=== PATIENT | male | born 1965 | race Caucasian/White ===

== ENCOUNTER 2019-06-28 23:22 | Emergency (ER) | payer SELFPAY ==
[~2019-06-28] VITALS: Ht 203.2 cm; Wt 154.5 kg
[2019-06-29 01:00] LABS: BASO # 0.1 (0.0-0.2); BASO % 0.6 % (0.0-2.0); EOS # 0.2 (0.0-0.7); EOS % 2.9 % (0-4.0); GRAN # 5.2 (1.4-6.5); GRAN % 63.2 % (42.2-75.2); HEMATOCRIT 45.1 % (42.0-52.0); HEMOGLOBIN 15.3 g/dl (13.5-18.0); LYMPH % 24.2 % (20.0-51.0); MEAN CELL VOLUME 89 fl (80.0-100.0); MEAN CORPUSCULAR HEMOGLOBIN 30 pg (27.0-31.0); MEAN CORPUSCULAR HGB CONC 34 g/dl (33.0-37.0); MEAN PLATELET VOLUME 13.1 fl (7.4-10.4); MONO # 0.7 (0.1-0.6); MONO % 8.6 % (1.7-9.3); PLATELET COUNT 156 K/mm3 (130-400); RED BLOOD COUNT 5.08 M/mm3 (4.20-5.60); REDCELL DISTRIBUTION WIDTH-CV 12.1 % (11.5-14.5)
[2019-06-29 01:12] LABS: ALBUMIN 3.6 gm/dL (3.5-5.0); BILIRUBIN,TOTAL 0.8 mg/dL (0.0-1.0); CALCIUM 8.6 mg/dL (8.4-10.2); CREATININE, serum 0.83 (0.66-1.25); POTASSIUM 3.9 mmol/L (3.4-5.0)
[2019-06-29] MEDS ORDERED: CLEOCIN HC150 MG/CAP PO (02:48)
[2019-06-29] MEDS ORDERED: PERCOCET 325 MG1 TA2 PO (02:49)
[2019-06-29 03:30] VITALS: BP 197/123; PULSE 93; TEMP 98.6
== END 2019-06-29 03:40 | disposition home or self-care (01) ==
LOC: COL.ER 23:22
PROVIDERS: Physician Assistant
DX: L03.311 Cellulitis of abdominal wall (principal); E11.65 Type 2 diabetes mellitus with hyperglycemia; I10 Essential (primary) hypertension; Z88.1 Allergy status to other antibiotic agents; Z86.14 Personal history of Methicillin resistant Staphylococcus aureus infection
CPT/HCPCS: J1885; J2020; J7030; Q9967

== ENCOUNTER 2019-06-29 13:51 | Outpatient (CLI) | payer SELFPAY ==
[~2019-06-29] VITALS: Ht 190.5 cm; Wt 168.7 kg
[~2019-06-29 13:51] MED LIST: CLEOCIN HC150 MG/CAP PO; PERCOCET 325 MG1 TA2 PO
[2019-06-29 15:52] VITALS: BP 169/96; PULSE 97; TEMP 98.1
== END 2019-06-29 16:21 | disposition home or self-care (01) ==
LOC: EUO 13:51
DX: E11.9 Type 2 diabetes mellitus without complications (principal); I10 Essential (primary) hypertension; L03.319 Cellulitis of trunk, unspecified; Z86.14 Personal history of Methicillin resistant Staphylococcus aureus infection
CPT/HCPCS: J2020

== ENCOUNTER 2023-03-19 18:34 | Inpatient (IN) | payer MEDICAID ==
[~2023-03-19] VITALS: Ht 203.2 cm; Wt 182.7 kg
[2023-03-19] VITALS (8 sets, daily range): BP systolic 83–104; BP diastolic 48–61; PULSE 95; TEMP 98.7
--- NOTE | 2023-03-19 11:30 | NUR ---
SYSTOLIC BP'S STILL IN THE 80'S. 1L NS BOLIS ADMINISTERED. WILL CONTINUE TO MONITOR.
[2023-03-19] MEDS ORDERED: GLUCOTROL 5M5 MG/TAB PO (20:08)
[2023-03-19] MEDS ORDERED: VICTOZA6 MG/ML SQ (20:08)
[2023-03-19] MEDS ORDERED: K-DUR20 MEQ PO (20:08)
[2023-03-19] MEDS ORDERED: GLUCOPHAGE XR500 M1 PO (20:08)
[2023-03-19] MEDS ORDERED: FARXIGA10 PO (20:09)
[2023-03-19] MEDS ORDERED: LIPITOR 10MG10 MG PO (20:09)
[2023-03-19] MEDS ORDERED: LASIX 40MG TABL40 MG PO (20:09)
[2023-03-19] MEDS ORDERED: ELIQUIS 5MG PO (20:09)
[2023-03-19] MEDS ORDERED: NORVASC 10MG10 MG PO (20:09)
[2023-03-19] MEDS ORDERED: PRINIVIL20 MG PO (20:10)
[2023-03-19 20:41] LABS: HEMATOCRIT 41.9 % (42.0-52.0); HEMOGLOBIN 12.9 g/dl (13.5-18.0); MEAN CELL VOLUME 87 fl (80.0-100.0); MEAN CORPUSCULAR HEMOGLOBIN 27 pg (27-31); MEAN CORPUSCULAR HGB CONC 31 g/dl (33.0-37.0); MEAN PLATELET VOLUME 11.2 fl (7.4-10.4); RED BLOOD COUNT 4.81 M/mm3 (4.20-5.60); REDCELL DISTRIBUTION WIDTH-CV 14.1 % (11.5-14.5)
[2023-03-19 20:56] LABS: BAND 13 % (0-10); LYMPHOCYTE 2 % (20.0-51.0); NEUTROPHILS 84 % (42.0-75.2)
[2023-03-19 20:57] LABS: ANISOCYTOSIS 1+; HYPOCHROMIA 2+; PLATELET ESTIMATE NORMAL (NORMAL)
[2023-03-19 20:58] LABS: ALBUMIN 2.6 gm/dL (3.5-5.0); BILIRUBIN,TOTAL 0.8 mg/dL (0.2-1.2); C-REACTIVE PROTEIN 30.2 mg/dL (0.00-0.50); CALCIUM 9.1 mg/dL (8.4-10.2); CREATININE, serum 2.38 mg/dL (0.72-1.25); POTASSIUM 4.3 mmol/L (3.5-4.5); TOTAL PROTEIN 7.8 gm/dL (6.2-8.1)
[2023-03-19 20:58] LABS: PLATELET COUNT 228 K/mm3 (130-400)
--- NOTE | 2023-03-19 22:30 | NUR ---
PATIENT ARRIVED TO FLOOR AT 2230. BP 84/56, 1L BOLIS ADMINISTERED. PATIENT UNABLE TO TRANSFER TO NEW BED AND NOT RESPONDING TO [facility]. CONTACTED HOSPITALIST. O2 ADJUSTED TO 5L NC. PATIENT SWEATING BUT SAYS HE DOES NOT FEEL WARM. TEMP. 98.7 AND GLUCOSE 260. INSULIN GIVEN ORDERED. PATIENT STATES HE JUST FEELS TIRED AND HAS NO OTHER COMPLAINTS.
[2023-03-19 23:02] LABS: ARTERIAL BLD GAS O2 SATURATION 94.6 % (92-100); ARTERIAL BLD GAS TCO2 CT 24.6; ARTERIAL BLOOD GAS BASE EXCESS -2.2 (-2-2); ARTERIAL BLOOD GAS HCO3 23.3 meq/L (22-26); ARTERIAL BLOOD GAS PCO2 42.8 mmHg (35-45); ARTERIAL BLOOD GAS PO2 76.1 mmHg (80-100); ARTERIAL BLOOD GAS pH 7.35 (7.35-7.45)
[2023-03-19] MEDS ORDERED: NEPHRON FA TAB1 EACH PO (23:51)
[2023-03-19] MEDS ORDERED: VITAMIN C500 MG PO (23:53)
[2023-03-19] MEDS ORDERED: VITAMIN D250 MCG PO (23:54)
[2023-03-19] MEDS ORDERED: VITAMIN B12 781 TAB PO (23:55)
[2023-03-20] VITALS (989 sets, daily range): BP systolic 87–123; BP diastolic 53–78; PULSE 85–90; TEMP 97.9–100; O2SAT 74–99
--- NOTE | 2023-03-20 01:00 | NUR ---
PATIENTS BP'S STILL IN THE 80'S SYSTOLIC. ADVISED HOSPITALIST 1L CHUCHO BURTON ORDERED AND PATIENT TO MOVE DOWN TO ICU. UNDERSTOOD. CALLED REPORT TO REESE AND TRANSFERED PATIENT.
[2023-03-20 03:25] LABS: HEMATOCRIT 37.4 % (42.0-52.0); HEMOGLOBIN 11.6 g/dl (13.5-18.0); MEAN CELL VOLUME 89 fl (80.0-100.0); MEAN CORPUSCULAR HEMOGLOBIN 28 pg (27-31); MEAN CORPUSCULAR HGB CONC 31 g/dl (33.0-37.0); MEAN PLATELET VOLUME 11.9 fl (7.4-10.4); PLATELET COUNT 229 K/mm3 (130-400); REDCELL DISTRIBUTION WIDTH-CV 14.4 % (11.5-14.5)
[2023-03-20 03:32] LABS: INR 1.9 (0.8-3.0); PROTHROMBIN TIME 20.9 SECONDS (9.7-12.8)
[2023-03-20 03:48] LABS: ALBUMIN 2.3 gm/dL (3.5-5.0); BILIRUBIN,TOTAL 0.8 mg/dL (0.2-1.2); CALCIUM 8.7 mg/dL (8.4-10.2); CREATININE, serum 2.42 mg/dL (0.72-1.25); POTASSIUM 4.7 mmol/L (3.5-4.5); TOTAL PROTEIN 7.2 gm/dL (6.2-8.1)
[2023-03-20 03:55] LABS: TROPONIN-I 6 HR POST INITIAL 0.055 ng/mL (0.00-0.033)
[2023-03-20 04:01] LABS: BAND 13 % (0-10); LYMPHOCYTE 4 % (20.0-51.0); NEUTROPHILS 76 % (42.0-75.2); PLATELET ESTIMATE NORMAL (NORMAL)
--- NOTE | 2023-03-20 06:58 | NUR ---
JOSSY SIZED DIABETIC ULCER TO SOLE OF LEFT FOOT. TUNNELING NOTED WITH LARGE BLOOD-TINGED AND PURULENT DRAINAGE. INTACT BLISTERED AREAS NOTED TO TOP OF LEFT FOOT. NECROTIC AREAS NOTED TO LATERAL SIDE OF LEFT FOOT. RIGHT FOOT IS MISSING ALL PHALANGES OF RIGHT FOOT. BILATERAL LOWER LEGS SCALY AND DRY WITH SEEMINGLY POOR CIRCULATION
--- NOTE | 2023-03-20 07:02 | NUR ---
0130 - RECIEVED REPORT FROM ABIDA, NURSE ON SURGICAL FLOOR. 0200 - PT ARRIVED TO FLOOR IN STABLE CONDITION. ASSESSED PT WITH HOSPITALIST KAROLINE. 0645 - THIS RN CHECKING OVER PT'S CHART, NOTICED THAT ADMISSION WAS NOT COMPLETED BY SURGICAL NURSE ABIDA WAS TOLD IN REPORT. CALLED FLOOR TO LET NURSE KNOW. NURSE STATES SHE WILL COMPLETE ADMISSION DATA.
--- NOTE | 2023-03-20 11:30 | NUR ---
Central line placed this a.m. by Dr. Altamirano with this nurse assisting. Time out was done at approx 1106. Patient tolerated procedure well and x-ray was taken to verify placement.
--- NOTE | 2023-03-20 13:09 | NUR ---
SW met with patient to complete intake. Patient provides that he lives in [facility] with his parents. Mom is Kiera Mckenzie [phone]. Patient provides that he utilizes a walker, crutches as well as a wheelchair, is independent with getting around home and does not utilize HH services at this time. PCP is Dr. Tomas and pharmacy is [facility]. Patient states that he does not have anyone appointment as DPOA, patient states that his plan is to return to his home upon dc. SW will continue to follow. DC plan: home
--- NOTE | 2023-03-20 21:47 | NUR ---
RECEIVED REPORT FROM SWEETIE ROMERO RN. PATIENT RESTING IN BED WITH EYES CLOSED AT THIS TIME. CALL LIGHT WITHIN REACH. ORDERS, LABS, AND MEDICATIONS REVIEWED AND ACKNOWLEDGED.
--- NOTE | 2023-03-20 22:03 | NUR ---
HEAD TO TOE ASSESSEMNT COMPLETED. PATIENT IS DROWSY BUT ABLE TO BE AROUSED AND ORIENTATED X4. PUPILS ARE EQUAL AND REACTIVE. HEART SOUNDS REGULAR WITH S1 AND S2 NOTED. LUNG SOUNDS ARE CLEAR BILATERALLY IN UPPER AND LOWER LOBES, WITH DIMINISHED BASES. BOWEL SOUNDS ACTIVE IN ALL QUADRANTS. PATIENT'S PULSES ARE PRESENT AND ABLE TO BE FELT BILATERALLY IN UPPER EXTREMITIES. PULSES TO LOWER EXTREMITIES ARE AUDIBLE VIA DOPPLER. PATIENT HAS VALDEZ IN PLACE DRAINING CLEAR YELLOW URINE. PATIENT HAS NO COMPLAINTS OF PAIN AT THIS TIME. CALL LIGHT IS WITHIN REACH.
[2023-03-21] VITALS (480 sets, daily range): BP systolic 91–111; BP diastolic 53–69; PULSE 81–85; TEMP 96.3–99.7; O2SAT 89–98
[2023-03-21 05:26] LABS: BASO % 0.3 % (0.0-2.0); EOS # 0.1 K/mm3 (0.0-0.7); EOS % 0.9 % (0.0-4.0); GRAN # 12.3 K/mm3 (1.4-6.5); GRAN % 79.7 % (42.2-75.2); LYMPH # 1.5 K/mm3 (1.2-3.4); LYMPH % 9.4 % (20.0-51.0); MEAN CELL VOLUME 89 fl (80.0-100.0); MEAN CORPUSCULAR HEMOGLOBIN 27 pg (27-31); MEAN CORPUSCULAR HGB CONC 31 g/dl (33.0-37.0); MONO # 1.4 K/mm3 (0.1-0.6); MONO % 9.2 % (1.7-9.3); PLATELET COUNT 189 K/mm3 (130-400); RED BLOOD COUNT 4.02 M/mm3 (4.20-5.60); REDCELL DISTRIBUTION WIDTH-CV 14.5 % (11.5-14.5)
[2023-03-21 05:36] LABS: HEMATOCRIT 35.7 % (42.0-52.0)
[2023-03-21 05:41] LABS: BILIRUBIN,TOTAL 0.5 mg/dL (0.2-1.2); CALCIUM 8.6 mg/dL (8.4-10.2); CREATININE, serum 1.88 mg/dL (0.72-1.25); TOTAL PROTEIN 6.7 gm/dL (6.2-8.1)
--- NOTE | 2023-03-21 06:47 | NUR ---
PATIENT SLEPT FOR MAJORITY OF THE NIGHT. PATIENT DID WAKE AND REQUEST APPLESAUCE WHICH WAS PROVIDED. PATIENT HAD NO COMPLAINTS OF PAIN THROUGHOUT NIGHT. OVERALL, NIGHT WAS UNEVENTFUL. PATIENT CURRENTLY RESTING IN BED WITH EYES CLOSED. CALL LIGHT WITHIN REACH.
[2023-03-21] MEDS ORDERED: CADUET 10 MG-101 TAB PO (09:27)
--- NOTE | 2023-03-21 09:40 | NUR ---
0700 BEDSIDE REPORT RECEIVED FROM BOB MAYNARD. PT RESTING IN BED. HEPARIN AND FLUIDS INFUSING ORDERED TO CENTRAL LINE IN RIJ. DRESSING TO LINE REINFORCED. VALDEZ CATHETER IN PLACE TO DEPENDENT DRAINAGE. WOUND TO L FOOT HUMAN RESOURCES ASSISTANT, LARGE AMOUNT OF BLOODY PURULENT DRAINAGE NOTED. PT DENIES PAIN. 0845 PT TRANSFERED TO SURGICAL FLOOR VIA BED BY ROSHNI. ALL PT BELONGINGS BAGGED AND TAKEN W/ PT.
--- NOTE | 2023-03-21 11:30 | NUR ---
Pt. arrived to the floor at 0900 from the ICU. Pt. is A&OX3, assessment complete. TLC to rt. IJ. patent. Wound to lt. bottom of foot noted, SHIP MATE, with some drainage noted. Pt. denies pain or other needs, call light within reach.
--- NOTE | 2023-03-21 19:12 | NUR ---
REPORT RECIEVED FROM ROBERT ROJAS. PT RESTING IN BED. NO C/O PAIN OR DISCOMFORT. CALL LIGHT IN PLACE. ALL NEEDS MET AT THIS TIME.
--- NOTE | 2023-03-21 21:26 | NUR ---
SHIFT ASSESSMENT COMPLETE, SEE DOCUMENTATION. PT RESTING IN BED. STRUGGLED WITH REPOSITIONING BUT DENIED PAIN. IVF RUNNING TO BROWN LUMEN, HEPARIN CONTINUES TO BLUE LUMEN. NO OTHER CONCERNS. CALL LIGHT IN PLACE. ALL NEEDS MET AT THIS TIME.
[2023-03-22] VITALS (612 sets, daily range): BP systolic 108–124; BP diastolic 56–71; PULSE 72–87; TEMP 97.8–99.1; O2SAT 88–97
--- NOTE | 2023-03-22 04:50 | NUR ---
ICU CALLED TO INFORM ME PT IS HAVING INCREASED FREQUENCY OF PVC NOTED ON TELE. CALLED AZALIA RAMEY TO UPDATE. AWAITING PHONE CALL BACK.
--- NOTE | 2023-03-22 05:05 | NUR ---
AZALIA RAMEY CALLED BACK AND PUT IN AN ORDER FOR AN EKG. RT OH IS PERFORMING EKG NOW.
--- NOTE | 2023-03-22 05:35 | NUR ---
EKG COMPLETE. AZALIA RAMEY PUT IN ORDERS FOR STAT LABS, ECHO, & CARDIAC CONSULT. PT REMAINS ASYMPTOMATIC AND DENIES CHEST PAIN OR SOB. CALL LIGHT IN PLACE. ALL NEEDS MET AT THIS TIME.
[2023-03-22 05:58] LABS: BASO # 0.1 K/mm3 (0.0-0.2); BASO % 0.4 % (0.0-2.0); EOS # 0.2 K/mm3 (0.0-0.7); EOS % 1.1 % (0.0-4.0); GRAN # 10.3 K/mm3 (1.4-6.5); GRAN % 74.5 % (42.2-75.2); HEMOGLOBIN 10.8 g/dl (13.5-18.0); LYMPH % 14.2 % (20.0-51.0); MEAN CELL VOLUME 86 fl (80.0-100.0); MEAN CORPUSCULAR HEMOGLOBIN 27 pg (27-31); MEAN CORPUSCULAR HGB CONC 31 g/dl (33.0-37.0); MEAN PLATELET VOLUME 11.7 fl (7.4-10.4); MONO # 1.3 K/mm3 (0.1-0.6); PLATELET COUNT 203 K/mm3 (130-400); RED BLOOD COUNT 4.03 M/mm3 (4.20-5.60); REDCELL DISTRIBUTION WIDTH-CV 14.1 % (11.5-14.5)
[2023-03-22 06:02] LABS: HEMATOCRIT 34.7 % (42.0-52.0)
[2023-03-22 06:19] LABS: MAGNESIUM 2.3 mg/dL (1.6-2.6); PHOSPHOROUS 3.1 mg/dL (2.3-4.7)
--- NOTE | 2023-03-22 06:20 | NUR ---
PT TRANSFERRED TO [facility].
--- NOTE | 2023-03-22 06:23 | NUR ---
PATIENT DID NOT WANT TO WEAR CPAP LAST NIGHT, HE IS WILLING TO TRY TONIGHT.
[2023-03-22 06:35] LABS: TROPONIN-I 0.011 ng/mL (0.00-0.033); TSH w REFLEX 1.335 uIU/mL (0.350-4.940)
[2023-03-22 06:57] LABS: ALBUMIN 1.9 gm/dL (3.5-5.0); BILIRUBIN,TOTAL 0.5 mg/dL (0.2-1.2); CALCIUM 8.7 mg/dL (8.4-10.2); CREATININE, serum 1.36 mg/dL (0.72-1.25); POTASSIUM 4.1 mmol/L (3.5-4.5); TOTAL PROTEIN 6.6 gm/dL (6.2-8.1)
--- NOTE | 2023-03-22 07:13 | NUR ---
Pt arrived on the unit at 0607. Nurse Eboni gave bedside report at 0609. Heparin drip was stopped at 0500 for the KA that is scheduled for 1100. Pt's vitals were stable upon arrival with pt on room air and has NS running at 125 ml/hr. Pt is alert and oriented x4. Pt's HR is sinus rhythm with some small 3-5 runs of VTACH, pulses are present. Amio bolus was given and drip started for the runs of VTACH. Pt denies CP, SOB, dizziness, and headache. Assessed that pt's right eye is red, irritated, and discharge/mucus. Pt's pupils look like different sizes per charted assessment, tried to notify both night and day shift hospitalist, passed onto to day shift nurse, Francy, in report. Gave report to day shift nurseFrancy.
--- NOTE | 2023-03-22 07:43 | NUR ---
Called Eboni john in surgerical floor, the nurse that had him before he came down here, to ask if they noticed the pt had different pupil sizes and asked BOB Grey who had him last night in the ICU to see if his pupils were different sizes. They both said they were the same size. The pupils are both reactive to light.
--- NOTE | 2023-03-22 07:47 | NUR ---
Home med. rec., allergies, and pharmacy were passed on to day shift nurseFrancy.
--- NOTE | 2023-03-22 12:01 | NUR ---
1042 OR TEAM LEFT WITH PT FOR BKA.
--- NOTE | 2023-03-22 12:30 | NUR ---
SW attempted to visit with pt after rounds, but he is in surgery. Will return later.
--- NOTE | 2023-03-22 15:08 | NUR ---
1500 PT BACK TO ICU ROOM 5. PT ALERT AND ORIENTED RATING PAIN 6/10 BUT HAD JUST RECIEVED MEDICATION PRIOR TO LEAVING PACU. REVIEWED PUMPS AND SURGICAL SITE WITH MICHEL PACU NURSE. PT RESTING AT THIS TIME. 1510 MOM AT BEDSIDE IN WHEELCHAIR
--- NOTE | 2023-03-22 18:52 | NUR ---
PT HAVING HARD TIME WITH PAIN MANAGEMENT. THIS NURSE HAS REPOSITIONED PT AND PT LEG SEVERAL TIMES PT STATED IT FEELS LIKE A TON OF BRIKCS ARE ON MY LEG. PRN PAIN MEDICATION ADMINISTERED TO THE MAX AMOUNT ORDERED. 1520 PO 5MG OXYCODONE 1535 IV 0.25MG DILAUDID 1620 ADDITIONAL 5MG OXYCODONE ADMINISTERED PER ORDER. 1700 PT STATES PAIN CONTINUES TO BE 10/10 WITH NO RELIEF. [address] MATHIS. ORDERS TO GIVE 0.5MG DILAUDID NOW IF NOT EFFCTIVE CALL IN HOUSE PROVIDER. 1730 ADDITIONAL DILAUDID NOT EFFECTIVE. CALL TO DR. CANALES FOR FURTHER ORDERS. NEW ORDERS TO INCREASE DILAUDID TO 0.5-1MG q2HR AND OXYCODONE TO 10MG Q4HRS. IF THIS IS NOT EFFECTIVE CONSULT [facility] HOSPITALIST FOR CVOR NURSE PUMP. PT REPOSISTIONED AND ICE PACK UNDER KNEE. PT STATES HE CONTINUES TO HAVE 10/10 PAIN FOLLOWING LAST DOSE OF DILAUDID
--- NOTE | 2023-03-22 19:50 | NUR ---
Received report from day shift nurse, Francy. Looked at the wrap and hemovac on pt's left leg. The kina wrap is clean dry and intact. Pt is on amio 0.5 mg/min and on NS. Pain rated pain at the end of his left leg a 6/10 which is better then what it was during the day, describes the pain "rocks cruching my leg." Pt on 3 L NC. Vitals are stable at this time.
[2023-03-23] VITALS (493 sets, daily range): BP systolic 103–128; BP diastolic 63–77; PULSE 66–79; TEMP 96.6–98.4; O2SAT 84–100
[2023-03-23 05:18] LABS: CALCIUM 8.5 mg/dL (8.4-10.2); CREATININE, serum 1.04 mg/dL (0.72-1.25); POTASSIUM 4.1 mmol/L (3.5-4.5)
[2023-03-23 05:28] LABS: MEAN CELL VOLUME 88 fl (80.0-100.0); MEAN CORPUSCULAR HEMOGLOBIN 27 pg (27-31); MEAN CORPUSCULAR HGB CONC 31 g/dl (33.0-37.0); MEAN PLATELET VOLUME 11.9 fl (7.4-10.4); PLATELET COUNT 208 K/mm3 (130-400); RED BLOOD COUNT 3.71 M/mm3 (4.20-5.60); REDCELL DISTRIBUTION WIDTH-CV 14.2 % (11.5-14.5)
[2023-03-23 05:35] LABS: HEMATOCRIT 32.6 % (42.0-52.0)
[2023-03-23 06:27] LABS: BAND 3 % (0-10); EOSINOPHIL 1 % (0-4); HYPOCHROMIA 2+; LYMPHOCYTE 15 % (20.0-51.0); METAMYELOCYTE 1 % (0-0); NEUTROPHILS 66 % (42.0-75.2); PLATELET ESTIMATE NORMAL (NORMAL)
--- NOTE | 2023-03-23 06:48 | NUR ---
Pt had an uneventfulnight. Pt's pain level has been between 4-6 throuhgout the night. Pt's RR was a 10 from beginning of the shift to around 0300. Pt's RR is now a 14. Hospitalist was notified at the beginning of the shift. Pt was repositioned q2hrs for the first 6 hours of the shift, but then pt refused to reposition after that. Nurse explained to pt that we need to reposition to prevent sores from appearing on the bottom or anywhere he is lying on for long periods of time, it can also help with pain relief as well. Pt still refuses to reposition. Pt's LBKA CLARE wrap dressing is clean, dry and intact. The hemovac drain output was 150 mL since pt came back from the surgery. Iced was placed on the CLARE wrap at this time. Pt has good pulses per doppler on the left popliteal. Pt on BiPAP at this time with 3 L of O2 connected. Pt's vitals have been stable throughout the night. Pt is resting with call light within reach. Will give report to day shift nurse.
--- NOTE | 2023-03-23 07:02 | NUR ---
Pt is on 5 L O2 with the BiPAP, not 3 L O2
--- NOTE | 2023-03-23 12:53 | NUR ---
PIOTR briefly met with pt after rounds this morning. Advised him that [facility] has him on their radar and once he is transferred upstairs, [facility] staff will evaluate him for rehab. Pt verbalized understanding and he indicated he is receptive to participating in a rehab prog before he goes home. PIOTR alerted [facility] staff to pt's potential transfer to the floor. No other concerns noted.
--- NOTE | 2023-03-23 13:25 | NUR ---
HEPARIN ON HOLD UNTIL DR. MATHIS GOT INTOUCH WITH DR. WEI TO OK TO START. 1150 JESSICA FROM PHARMACY CALLED THIS NURSE TO RELY MESSAGE TO GO AHEAD AND START HEPARIN AT 3000 U/HR NO BOLUS. HEPXA WAS DRAWN PRIOR IT INITIATING HOWEVER LAB CALLED AND STATED THE TUBE WAS TO FULL, HEPARIN PUT ON HOLD FOR 10 MINS AND LAB WAS REDRAWN. RESULTS 0.24. CALL TO JESSICA IN PHARMACY TO CONFIRM TO CONTINUE INITIATED RATE OF 300U/HR AND FOLLOW PROTOCAL AT 6 HOUR DRAW.
--- NOTE | 2023-03-23 13:29 | NUR ---
PT EDUCATED SEVERAL TIMES TO REPOSITION TO HELP MINIMIS PRESSURE SORES HOWEVER PT CONTINUES TO DENY. PT STATES "IM ONLY COMFORTABLE LAYING ON MY BACK" PT DID LET NURSE PROP BLE WITH PILLOWS AND REPOISTION BLE Q2HRS.
--- NOTE | 2023-03-23 14:17 | NUR ---
Received report on patient from BOB Sen. Patient resting in bed and wearing CPAP. No complaints at this time. Will continue to monitor.
--- NOTE | 2023-03-23 16:30 | NUR ---
Assisted with a bed bath and linen change. Tolerated well. No concerns or complaints at this time.
[2023-03-24] VITALS (611 sets, daily range): BP systolic 117–144; BP diastolic 59–77; PULSE 73–86; TEMP 97.9–98.8; O2SAT 74–100
--- NOTE | 2023-03-24 07:00 | NUR ---
Bedside report received from BOB Holt. Pt had uneventful night; slept for most of the night. Reports no issues this AM. Dr. Mcclain at the bedside at this time; pulled hemovac drain due to minimal output. Pt tolerated well and reports no pain.
[2023-03-24 07:33] LABS: MEAN CELL VOLUME 87 fl (80.0-100.0); MEAN CORPUSCULAR HGB CONC 31 g/dl (33.0-37.0); MEAN PLATELET VOLUME 11.2 fl (7.4-10.4); PLATELET COUNT 226 K/mm3 (130-400); RED BLOOD COUNT 3.42 M/mm3 (4.20-5.60); REDCELL DISTRIBUTION WIDTH-CV 14.2 % (11.5-14.5)
[2023-03-24 07:35] LABS: HEMATOCRIT 29.8 % (42.0-52.0); HEMOGLOBIN 9.2 g/dl (13.5-18.0); MEAN CORPUSCULAR HEMOGLOBIN 27 pg (27-31)
[2023-03-24 07:56] LABS: BAND 6 % (0-10); EOSINOPHIL 1 % (0-4); LYMPHOCYTE 21 % (20.0-51.0); METAMYELOCYTE 1 % (0-0); NEUTROPHILS 65 % (42.0-75.2); PLATELET ESTIMATE NORMAL (NORMAL)
--- NOTE | 2023-03-24 14:40 | NUR ---
Pt transfered to room 329. Report given to BOB Thurman. All patient belonings moved with pt to new room. Pt orientedt to room and BOB Thurman present in room upon pt's arrival. Pt offers no complaints.
--- NOTE | 2023-03-24 14:58 | NUR ---
Patient arrived to the unit from ICU to room 329 via bariatric bed at 1430. Patient alert and oriented. Lungs CTA , bowel sounds active. Dressing on left stump dry and intact. 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 RLE dry and scaly. RIJ intact and no redness noted. VSS. Patient oriented to room and the use of call bolden. Patient's 02 level decrease when trying to take nap. Patient states he uses CPAP at night. 02L/NC applied on. Patient has no other issues or concern.
--- NOTE | 2023-03-24 18:44 | NUR ---
Patient in bed, consumed 100% of dinner, and denies pain at this time. left BKA dressing dry and intact.
--- NOTE | 2023-03-24 20:00 | NUR ---
PT A&O X4 LAYING IN BED. VSS. DENYING ANY PAIN OR N/V. ACEWRAP DRESSING TO LBKA CDI. BED LOWERED & CALL LIGHT IN REACH. PT DENYING FURTHER NEEDS AT THIS TIME.
--- NOTE | 2023-03-24 22:45 | NUR ---
PT UNABLE TO VOID SINCE VALDEZ D/C THIS AFTERNOON. BLADDER SCAN SHOWED 454 MLS. PT STATES "I WILL NOT HAVE ANOTHER CATHETER ITS TO PAINFUL & IT WILL COME OUT WHEN ITS READY". PROVIDED PT EDUCATION ON URINARY RETENTION. HOSPITALIST DEEPALI AWARE & WILL CONTINUE TO MONITOR & NOTIFY IF EXCEEDS 600MLS.
[2023-03-25] VITALS (12 sets, daily range): BP systolic 142–174; BP diastolic 68–69; PULSE 79–85; TEMP 97.7–98.4
--- NOTE | 2023-03-25 00:59 | NUR ---
PT ABLE TO VOID 100 MLS. BLADDER SCAN NOW SHOWS 298 MLS.
--- NOTE | 2023-03-25 04:26 | NUR ---
C/O PAIN 12/18 IN LEFT LEG - REPOSITIONED & GIVEN PRN OXY. PT HAS VOIDED 600 MLS - BLADDER SCAN NOW SHOWING 191 MLS.
--- NOTE | 2023-03-25 05:50 | NUR ---
IN TO CHANGE DRESSING
[2023-03-25 05:57] LABS: MEAN CELL VOLUME 87 fl (80.0-100.0); MEAN CORPUSCULAR HGB CONC 31 g/dl (33.0-37.0); MEAN PLATELET VOLUME 10.8 fl (7.4-10.4); PLATELET COUNT 284 K/mm3 (130-400); RED BLOOD COUNT 3.51 M/mm3 (4.20-5.60); REDCELL DISTRIBUTION WIDTH-CV 14.4 % (11.5-14.5)
[2023-03-25 05:59] LABS: HEMATOCRIT 30.6 % (42.0-52.0); HEMOGLOBIN 9.4 g/dl (13.5-18.0); MEAN CORPUSCULAR HEMOGLOBIN 27 pg (27-31)
--- NOTE | 2023-03-25 07:11 | NUR ---
Report received from the night nurse, BOB Dailey.
[2023-03-25 08:07] LABS: CALCIUM 8.5 mg/dL (8.4-10.2); CREATININE, serum 0.95 mg/dL (0.72-1.25); POTASSIUM 4.2 mmol/L (3.5-4.5)
--- NOTE | 2023-03-25 08:18 | NUR ---
Patient laying in bed, 02 2L/NC in use, patient denies of shortness of breath. Left BKA dressing dry and intact and ice pack in place. Patient reminded of NPO status for possible procedure. Patient verbalized understanding.
--- NOTE | 2023-03-25 08:44 | NUR ---
This nurse went to patient's room to have him sign consent for scheduled loop recorder implantation. Patient refused to sign consent for the procedure states " I don't want to have any device underneath my skin". Patient educated the importance of having loop recorder implantation but still declined to have procedure done. Dr. Schofield office called and spoke to Shanon Hodges RN of patient's decision. builder's labourer also notified of patient declining the loop recorder implantation.
--- NOTE | 2023-03-25 13:31 | NUR ---
Patient wanted to get updates whether he will be getting surgery today since it;s noon time. Adrian Do was notified and got updates on patient that patient is no longer having active bleeding at left BKA. Adrian gave a telephone order to resume patient's diet, starts Eliquis this pm and physical therapy tomorrow. Patient notified and has no other questions or concern.
--- NOTE | 2023-03-25 14:18 | NUR ---
Behavioral Interventionist and SW student met with Patient at bedside to discuss discharge planning. SW discussed the potential for Post Acute Rehab when Patient is medically cleared. Patient is open to [facility] who is following Patient's treament. SW spoke with Greta at [facility] who stated that they are moving forward with the referral process.
--- NOTE | 2023-03-25 16:34 | NUR ---
Dr. Jen Mcclain at the bedside and did a dressing change on left BKA, no active bleeding noted. Affected extremity elevated on a pillow. Patient tolerated the procedure well.
--- NOTE | 2023-03-25 18:03 | NUR ---
Patient states he had lunch and does not want to eat dinner.
--- NOTE | 2023-03-25 21:00 | NUR ---
SHIFT ASSESSMENT COMPLETE. VSS. A&O X4. ALL NIGHT MEDS GIVEN PER ORDER. PATIENT RESTING IN BED WATCHING TV. PATIENT STATES PAIN AT A 4 NO PAIN MEDS REQUESTED AT THIS TIME. PATIENT HAS NO COMPLAINTS OR REQUEST AT THIS TIME. BED AT LOWEST POSITION, BED ALARM ON, AND CALL LIGHT IN REACH.
[2023-03-26] VITALS (13 sets, daily range): BP systolic 133–181; BP diastolic 65–81; PULSE 71–85; TEMP 97.8–98.7
[2023-03-26 05:47] LABS: MEAN CELL VOLUME 88 fl (80.0-100.0); MEAN CORPUSCULAR HGB CONC 31 g/dl (33.0-37.0); MEAN PLATELET VOLUME 10.3 fl (7.4-10.4); PLATELET COUNT 316 K/mm3 (130-400); RED BLOOD COUNT 3.18 M/mm3 (4.20-5.60); REDCELL DISTRIBUTION WIDTH-CV 14.6 % (11.5-14.5)
[2023-03-26 05:53] LABS: HEMOGLOBIN 8.7 g/dl (13.5-18.0); MEAN CORPUSCULAR HEMOGLOBIN 27 pg (27-31)
[2023-03-26 06:17] LABS: BAND 7 % (0-10); EOSINOPHIL 1 % (0-4); HYPOCHROMIA 2+; LYMPHOCYTE 15 % (20.0-51.0); NEUTROPHILS 69 % (42.0-75.2); PLATELET ESTIMATE NORMAL (NORMAL)
[2023-03-26 06:25] LABS: C-REACTIVE PROTEIN 9.96 mg/dL (0.00-0.50)
[2023-03-26 06:39] LABS: CALCIUM 8.5 mg/dL (8.4-10.2); CREATININE, serum 0.77 mg/dL (0.72-1.25); POTASSIUM 4.4 mmol/L (3.5-4.5)
--- NOTE | 2023-03-26 08:40 | NUR ---
ASSISTED PT AND PATIENT WITH BEDBATH. NEW GOWN AND CLEAN UNDERWARE REPLACED. PT TOLERATED WELL. DRESSING TO [facility]. PT EATING AND DRINKING WITH NO N/V. LEFT LEG ELEVATED ON PILLOWS BY THERAPY.
--- NOTE | 2023-03-26 13:46 | NUR ---
Senior Energy Trader rounds: Patient talked about his surgeries and recovery periods from June 2022 until now. Patient talked about having support from his Parents. Patient talked about his Grandmother taking him to denominational when he was younger. Senior Energy Trader found a denominational that might interest Patient on youtube. Senior Energy Trader prayed for healing and good physical therapy sessions in the coming week.
--- NOTE | 2023-03-26 20:30 | NUR ---
Initial shift assessment done- denies need for pain meds at this time, states pain is 2/10 to left stump incision, o2 at 2L/nc, states he feels like hes not getting the air-- sats 93%, resp called and will put him on his CPAP for the night, did void 200cc urine per urinal, Tele on SR, Dressing dry and intact to left BKA, up on pillow. SCD to right leg-
[2023-03-27] VITALS (10 sets, daily range): BP systolic 134–159; BP diastolic 62–68; PULSE 71–81; TEMP 97.7–98.6
[2023-03-27 05:57] LABS: MEAN CELL VOLUME 88 fl (80.0-100.0); MEAN CORPUSCULAR HGB CONC 30 g/dl (33.0-37.0); MEAN PLATELET VOLUME 10.4 fl (7.4-10.4); PLATELET COUNT 318 K/mm3 (130-400); RED BLOOD COUNT 3.16 M/mm3 (4.20-5.60); REDCELL DISTRIBUTION WIDTH-CV 14.6 % (11.5-14.5)
[2023-03-27 06:04] LABS: HEMATOCRIT 27.9 % (42.0-52.0); HEMOGLOBIN 8.4 g/dl (13.5-18.0); MEAN CORPUSCULAR HEMOGLOBIN 27 pg (27-31)
--- NOTE | 2023-03-27 06:12 | NUR ---
Denies pain, Slept fair, L/BKA dressing dry and intact. Afebrile.
[2023-03-27 06:20] LABS: CALCIUM 8.7 mg/dL (8.4-10.2); CREATININE, serum 0.71 mg/dL (0.72-1.25); POTASSIUM 4.6 mmol/L (3.5-4.5)
[2023-03-27 06:48] LABS: BAND 9 % (0-10); EOSINOPHIL 4 % (0-4); LYMPHOCYTE 15 % (20.0-51.0); METAMYELOCYTE 1 % (0-0); NEUTROPHILS 67 % (42.0-75.2); PLATELET ESTIMATE NORMAL (NORMAL)
--- NOTE | 2023-03-27 09:13 | NUR ---
PT UP TO DANGLE, BED BATH COMPLETE. ATE 100% OF BREAKFAST. DRESSING TO LEFT BKA CDI PT DENIES NEEDS OR PAIN AT THIS TIME. CAREPLAN REVIEWED WITH PT AND WILL CONTINUE TO FOLLOW. PT READY FOR PLACEMENT.
[2023-03-28 03:38] VITALS: BP 138/61; PULSE 63; TEMP 97.7
[2023-03-28 08:00] VITALS: BP 144/71; PULSE 76; TEMP 98.8
--- NOTE | 2023-03-28 09:48 | NUR ---
Sandblaster Supervisor collaborated with Treatment Team during rounding to assess Patient for discharge readiness. Patient is assessed to be ready for discharge to post-acute rehab. SW spoke with [facility] who reports to be pending auth at this time.
--- NOTE | 2023-03-28 10:01 | NUR ---
PT LAYING IN BED, ALERT AND ORIENTEDX4. PT TOLERATED BREAKFAST AND HAS NO COMPLAINTS OF PAIN AT THIS TIME. DRESSING ON LEFT LEF IS CLEAN, DRY, INTACT. IJ FLUSHES AND DRAWS BACK IN ALL THREE SITES. BELT DRESSER WENT IN WITH ME AND GAVE THE PT MORNING MEDS WITH SUPERVISION FROM THIS NURSE. CALL LIGHT WITHIN REACH.
[2023-03-28 10:07] VITALS: BP 144/71; PULSE 76; TEMP 98.8
[2023-03-28 10:24] VITALS: BP_SYST 144
[2023-03-28 12:31] VITALS: BP_SYST 144
[2023-03-28] MEDS ORDERED: CEPHALEXIN500 M1 PO (13:30)
[2023-03-28] MEDS ORDERED: ASPI325T6 PO (13:35)
[2023-03-28] MEDS ORDERED: NEURONTIN300 MG/CAP PO (13:36)
[2023-03-28] MEDS ORDERED: TYLENOL 500MG500 MG PO (13:36)
[2023-03-28] MEDS ORDERED: PACERONE400 MG PO (13:41)
[2023-03-28] MEDS ORDERED: LIPITOR 10MG10 MG PO (13:57)
--- NOTE | 2023-03-28 16:08 | NUR ---
PT HAS DISCHARGE ORDERS TO GO TO [facility]. TOOK OUT CENTRAL LINE. GAVE REPORT TO [facility] NURSE, EDD. TRANSFERED PT FROM ROOM 329 TO ROOM 334.
[2023-03-28] MEDS ORDERED: PROTONIX 40MG T40 MG PO (16:41)
== END 2023-03-28 16:00 | DRG 853 ==
LOC: COL.ER 18:34 → SURG 19:53 → ICU 19:53 → SURG 03-21 09:00 → ICU 03-22 06:25 → SURG 03-24 14:45
PROVIDERS: Emergency Medicine; Nurse Practitioner Family; Orthopaedic Surgery; Physician Assistant; ADMIT Internal Medicine
PROC: 02HV33Z Insertion of Infusion Device into Superior Vena Cava, Percutaneous Approach (ICD-10-PCS; 2023-03-20)
PROC: 0Y6J0Z1 Detachment at Left Lower Leg, High, Open Approach (ICD-10-PCS; principal; 2023-03-22 11:00)
DX: A40.1 Sepsis due to streptococcus, group B (principal); J96.01 Acute respiratory failure with hypoxia; R65.21 Severe sepsis with septic shock; N17.9 Acute kidney failure, unspecified; Z68.41 Body mass index [BMI] 40.0-44.9, adult; I47.20 Ventricular tachycardia, unspecified; I13.0 Hypertensive heart and chronic kidney disease with heart failure and stage 1 through stage 4 chronic kidney disease, or unspecified chronic kidney disease; E66.2 Morbid (severe) obesity with alveolar hypoventilation; E11.52 Type 2 diabetes mellitus with diabetic peripheral angiopathy with gangrene; I96 Gangrene, not elsewhere classified; L03.116 Cellulitis of left lower limb; E11.621 Type 2 diabetes mellitus with foot ulcer; L97.529 Non-pressure chronic ulcer of other part of left foot with unspecified severity; I77.819 Aortic ectasia, unspecified site; E11.610 Type 2 diabetes mellitus with diabetic neuropathic arthropathy; E11.22 Type 2 diabetes mellitus with diabetic chronic kidney disease; N18.30 Chronic kidney disease, stage 3 unspecified; D64.9 Anemia, unspecified; E88.09 Other disorders of plasma-protein metabolism, not elsewhere classified; E78.5 Hyperlipidemia, unspecified; Z20.822 Contact with and (suspected) exposure to COVID-19; Z79.01 Long term (current) use of anticoagulants; Z79.84 Long term (current) use of oral hypoglycemic drugs; Z91.199 Patient's noncompliance with other medical treatment and regimen due to unspecified reason; Z89.431 Acquired absence of right foot; Z86.718 Personal history of other venous thrombosis and embolism; Z86.73 Personal history of transient ischemic attack (TIA), and cerebral infarction without residual deficits; Z88.1 Allergy status to other antibiotic agents
CPT/HCPCS: A4314; C9113; J0282; J0696; J1170; J1644; J1815; J2020; J2270; J2405; J2543; J2704; J2795; J3010; J7030; J7060; J7120; Q3014

== ENCOUNTER 2023-03-28 14:30 | Inpatient (IN) | payer MEDICAID ==
[~2023-03-28] VITALS: Ht 203.2 cm; Wt 170.0 kg
[~2023-03-28 14:30] MED LIST changes: +ASPI325T6 PO; +CADUET 10 MG-101 TAB PO; +CEPHALEXIN500 M1 PO; +ELIQUIS 5MG PO; +FARXIGA10 PO; +GLUCOPHAGE XR500 M1 PO; +GLUCOTROL 5M5 MG/TAB PO; +K-DUR20 MEQ PO; +LASIX 40MG TABL40 MG PO; +LIPITOR 10MG10 MG PO; +NEPHRON FA TAB1 EACH PO; +NEURONTIN300 MG/CAP PO; +NORVASC 10MG10 MG PO; +PACERONE400 MG PO; +PRINIVIL20 MG PO; +TYLENOL 500MG500 MG PO; +VICTOZA6 MG/ML SQ; +VITAMIN B12 781 TAB PO; +VITAMIN C500 MG PO; +VITAMIN D250 MCG PO
--- NOTE | 2023-03-28 16:00 | NUR ---
PT ALERT AND ORIENTED X4. VITAL SIGNS STABLE. LEFT BKA WRAPPED IN CLARE BANDDAGE, CLEAN, DRY, INTACT. TURNS WELL IN BED. HEAD TO TOE ASSESSMENT COMPLETE. PT REFUSED ALL CARDIAC WORKUP PREVIOUS TO ADDMISSION TO [facility]. WEARS CPAP AT BEDTIME, WHICH IS IN THE ROOM. NO VALUABLES WITH PT. PATIENT BELONGINGS INCLUDE PRESCRIPTION GLASSES AND CELLULAR PHONE. SCD TO RIGHT LOWER EXTREMITY.
[2023-03-28] MEDS ORDERED: PROTONIX 40MG T40 MG PO (16:41)
[2023-03-28 18:33] VITALS: BP 155/63; PULSE 81; TEMP 97.8
[2023-03-28 21:07] VITALS: BP_SYST 155
--- NOTE | 2023-03-28 22:27 | NUR ---
PT. DENIES ANY PAIN RIGHT NOW, STATES HE IS READY TO HAVE HIS CPAP PUT ON SO THAT HE CAN GET SOME SLEEP, I LET HIM KNOW THAT I WOULD CALL RT SOON I WAS DONE GIVING HIM HIS NIGHT TIME MEDS, SO THAT THEY CAN GET HIM SET UP, WILL CONTINUE TO MONITOR.
[2023-03-29 00:29] VITALS: BP_SYST 155
[2023-03-29 05:51] VITALS: BP 148/65; PULSE 73; TEMP 98.3
[2023-03-29 06:59] VITALS: BP_SYST 148
--- NOTE | 2023-03-29 06:59 | NUR ---
Shift report received from mold shifter RN. Pt sleeping supine in bed w/ even & unlabored resps. No events reported overnight. Call light in reach. Bed alarm is on.
--- NOTE | 2023-03-29 09:01 | NUR ---
Pt sitting up at sink to shave. RIJ dressing removed. Site is w/o bleeding & is intact.
--- NOTE | 2023-03-29 10:54 | NUR ---
Has lack of transportation kept you from medical appts, meetings, work, or from getting things needed for daily living? NO How often do you feel lonely or isolated from those around you? NEVER Over the past 5 days, how much of the time has pain made it hard for you to sleep? OCCASIONALLY Over the past 5 days, how often have you limited your participation in therapy due to pain? RARELY/NOT AT ALL Over the past 5 days, how often have you limited your day-to-day activities because of pain? RARELY/NOT AT ALL Have you had 2 or more falls in the past year or any fall with an injury? NO Did you have major surgery during the 100 days prior to admission? YES
--- NOTE | 2023-03-29 11:19 | NUR ---
Pt sitting up in the wheelchair watching tv in his room. Lt. BKA stump elevated on footrest. Rt. pedal pulse audible w/ doppler. Pt denies pain/discomfort. Reports "some tingling" in LLE & it is "tolerable". Pt denies other needs. Call light in reach.
--- NOTE | 2023-03-29 13:08 | NUR ---
Pt is off the unit w/ PT.
--- NOTE | 2023-03-29 16:56 | NUR ---
Min asst provided to position pt on bedpan per his request. Pt had a large, formed BM. Excoriated skin to left inner buttock (in cleft). Skin noted to be peeling w/ pink wound bed. Skin rip-wound is not red or tender. Skin barrier ointment applied to this area.
[2023-03-29 18:02] VITALS: BP 147/49; PULSE 71; TEMP 98.2
--- NOTE | 2023-03-29 19:00 | NUR ---
RECEIVED CHANGE OF SHIFT REPORT FROM DAY SHIFT RN. PATIENT RESTING IN BED, EYES CLOSED, BREATHING NONLABORED AND EVEN. AWAKEN WHEN STAFF ENTERED ROOM ON ROUNDS. CALL LIGHT IN REACH, PATIENT ON BARIBED. DENIES ANY NEEDS AT TIME OF REPORT.
[2023-03-30 05:15] VITALS: BP 127/63; PULSE 72; TEMP 97.5
--- NOTE | 2023-03-30 06:50 | NUR ---
CHANGE OF SHIFT REPORT GIVEN TO DAY SHIFT RNs, JEYSON AND EDD. PATIENT SLEPT DURING THE NIGHT WITH CPAP ON WITH OXYGEN BLEED IN OF 2.5 LPM. CALL LIGHT IN REACH. DENIED ANY COMPLAINTS OF PAIN THROUGH THE NIGHT.
[2023-03-30 07:00] VITALS: BP_SYST 127
--- NOTE | 2023-03-30 09:07 | NUR ---
PT RESTING IN BED COMFORTABLE. ALERT AND ORIENTED. USING BARIATRIC BED. PT REQUESTED THE BEDPAN, TURNS WITH MINIMAL ASSISTANCE. VITAL SIGNS STABLE. NO C/O PAIN AT THIS TIME. INSULIN NOT REQUIRED. TAKES PILLS WHOLE W/O PROBLEMS. HEAD TO TOE ASSESSMENT COMPLETE. LEFT STUMP WRAPPED IN CLARE BANDAGE, CLEAN DRY, INTACT. CALL LIGHT WITHIN REACH.
--- NOTE | 2023-03-30 13:00 | NUR ---
Pt is off the unit for PT.
--- NOTE | 2023-03-30 14:54 | NUR ---
Color Stripper met with patient to welcome him to the rehab unit and to provide copy of team conference notes. SW advised no discharge date is set at this time and he will be re-evaluated next week. Patient lives in [place] with his parents and he has his mom, Kiera (ph#[phone]) listed as his point of contact. Patient sees Dr. Mccarthy at [facility] for primary care and obtains medications from [facility] pharmacy. Patient does state that he gets his diabetic sensor supplies at [facility]. Patient has a heavy duty front wheeled walker, crutches, and a wheelchair available at home. Patient denies any stairs but does state there is a small threshold into the home. Patient does not have DPOA-HC at this time but may want to complete one during his stay. Patient is not and has no adult children. Patient's parents would be his legal next of kin.
--- NOTE | 2023-03-30 17:15 | NUR ---
PT BG REPORTED BY PCT TO BE 77. GAVE GLUCERNA TO PT. ASYMPTOMATIC AT THIS TIME DINNER SERVED WITHIN 15-20 MINUTES, PT ATE 100% OF DINNER.
[2023-03-30 17:41] VITALS: BP 136/73; PULSE 76; TEMP 98.1
--- NOTE | 2023-03-30 19:30 | NUR ---
RECEIVED CHANGE OF SHIFT REPORT FROM DAY SHIFT RN. UP IN WC DURING REPORT, VISITOR IN ROOM, NO NEEDS REPORTED, EXIT ALARM ON WITH CALL LIGHT IN REACH.
--- NOTE | 2023-03-31 | NUR ---
WITH PATIENT UP IN WC AT BEGINNING OF SHIFT, WAS FATIGUED AND TRANSFER FROM WC TO STOOL W/SOME DIFFICULTY THAT CONTINUES FROM STOOL TO WC AND THEN FROM WC TO BED. UNABLE TO USE SLIDE BOARD FROM WC TO BED DUE TO FATIGUE AND STILL HAD DIFFICULTY TOLERATING SIT TO STAND DUE TO FATIGUE. PATIENT DENIED COMPLAINTS OF PAIN WHEN BACK IN BED, DENIED CONCERNS FOR MOST OF THE SHIFT.
[2023-03-31 05:06] VITALS: BP 119/63; PULSE 72; TEMP 97.5
[2023-03-31 06:30] VITALS: BP_SYST 119
--- NOTE | 2023-03-31 07:12 | NUR ---
CHANGE OF SHIFT REPORT GIVEN TO DAY SHIFT RNNAKIA.
--- NOTE | 2023-03-31 08:57 | NUR ---
PT LAYING IN BED, ALERT AND ORIENTEDX4. NO COMPLAINTS OF PAIN AT THIS. TIME. DRESSING ON LEFT LEG IS CLEAN, DRY, INTACT. GAVE MORNING MEDS. CALL LIGHT WITHIN REACH.
[2023-03-31 17:41] VITALS: BP 128/63; PULSE 76; TEMP 98.2
--- NOTE | 2023-03-31 19:46 | NUR ---
Patient assessed at this time, see shift assessment, A/Ox4, wears CPAP with oxygen at 5LPM, denies pain or discomfort at this time, takes HS pills whole fine, denies further needs, call light and personal items within reach, will continue to monitor.
[2023-04-01 06:53] VITALS: BP 135/67; PULSE 71; TEMP 98.4
[2023-04-01 07:29] VITALS: BP_SYST 135
--- NOTE | 2023-04-01 08:44 | NUR ---
PT LAYING IN BED, TOLERATED BREAKFAST. ALERT AND ORIENTEDX4. NO COMPLAINTS OF PAIN MOVING LEGS WELL. DRESSING IS CLEAN, DRY, INTACT. GAVE MORNING MEDS. CALL LIGHT WITHIN REACH
--- NOTE | 2023-04-01 12:51 | NUR ---
Admission QIM scores were reviewed by the team. Code of 1 chosen for toilet transfers was determined by team discussion to be the most usual performance for this patient during the discharge assessment period. Code of 4 chosen for chair/bed to chair transfer was determined by team discussion to be the most usual performance before interventions for this patient during the assessment period. Code of 88 chosen for lying to sitting side of bed was determined by team discussion to be the most usual performance before interventions for this patient during the assessment period. Code of 88 chosen for sit to stand was determined by team discussion to be the most usual performance for this patient during the discharge assessment period. Code of 88 chosen for chair/bed to chair transfer was determined by team discussion to be the most usual performance before interventions for this patient during the assessment period.--Cami Desai, PD
--- NOTE | 2023-04-01 15:45 | NUR ---
Flue Blower and SW student met with Patient at bedside to review progress towards treatment goals and discharge planning. Patient reports to be making progress towards his goals. SW and Patient reviewed LTC options. Patient would like LTC referrals to [facility] and [facility] in the case that he chooses to discharge to LTC.
[2023-04-01 17:09] VITALS: BP 156/67; PULSE 78; TEMP 98.7
--- NOTE | 2023-04-01 20:29 | NUR ---
Patient assessed around this time, see shift assessment, denies pain or discomfort, noted skin tear to right butt cheek, applied non adherent pad and tegaderm, wears CPAP with oxygen at 5LPM HS, denies further needs, call light and personal items within reach, will continue to monitor.
[2023-04-02 06:29] VITALS: BP 131/65; PULSE 72; TEMP 98.6
[2023-04-02 07:01] VITALS: BP_SYST 131
--- NOTE | 2023-04-02 07:01 | NUR ---
Shift report received from air shovel operator RN. No events reported overnight. Pt awake & lying supine in bed. Denies pain. Denies other needs. Call light in reach.
--- NOTE | 2023-04-02 08:00 | NUR ---
Pt resting supine in bed after eating breakfast independently. Lt. BKA kina wrapped & is CDI. Rt. pedal pulse detected via doppler. Pt denies pain\discomfort. Denies other needs. Call light in reach.
--- NOTE | 2023-04-02 09:56 | NUR ---
Pt is off the unit for Group Therapy.
--- NOTE | 2023-04-02 11:49 | NUR ---
Packing Clerk rounds: Packing Clerk visit attempted; Patient not in room.
--- NOTE | 2023-04-02 11:50 | NUR ---
Pt is back in his room after working w/ OT, PT, & Group Therapy. Pain/discomfort denied. Blood sugar 61 md/dL. Pt is asymptomatic of hypoglycemia. Glucerna given at his request + kailash saucedo. Lunch trays are currently being delivered. Hospitalist notified. Will continue to monitor.
--- NOTE | 2023-04-02 14:17 | NUR ---
Pt repositioned to bed using 2 person assist + slide board. Pt resting supine w/ L. BKA stump elevated on a pillow. Pt denies pain/discomfort. Denies any needs at this time. Call light in reach.
[2023-04-02 15:03] LABS: BASO # 0.1 K/mm3 (0.0-0.2); BASO % 0.9 % (0.0-2.0); EOS # 0.3 K/mm3 (0.0-0.7); EOS % 3.3 % (0.0-4.0); GRAN # 7.2 K/mm3 (1.4-6.5); GRAN % 70.2 % (42.2-75.2); LYMPH # 1.9 K/mm3 (1.2-3.4); MEAN CELL VOLUME 91 fl (80.0-100.0); MEAN CORPUSCULAR HGB CONC 30 g/dl (33.0-37.0); MEAN PLATELET VOLUME 10.7 fl (7.4-10.4); MONO # 0.7 K/mm3 (0.1-0.6); MONO % 6.8 % (1.7-9.3); PLATELET COUNT 327 K/mm3 (130-400); RED BLOOD COUNT 3.19 M/mm3 (4.20-5.60); REDCELL DISTRIBUTION WIDTH-CV 15.9 % (11.5-14.5)
[2023-04-02 15:05] LABS: HEMATOCRIT 28.9 % (42.0-52.0); HEMOGLOBIN 8.6 g/dl (13.5-18.0); MEAN CORPUSCULAR HEMOGLOBIN 27 pg (27-31)
[2023-04-02 15:18] LABS: CALCIUM 9.6 mg/dL (8.4-10.2); CREATININE, serum 1.01 mg/dL (0.72-1.25); POTASSIUM 4.2 mmol/L (3.5-4.5)
--- NOTE | 2023-04-02 17:28 | NUR ---
Pt sitting up in bed to eat dinner indepedently. Pain/discomfort denied. Lt. BKA kina wrap CDI. Pt denies other needs. Call light in his reach.
[2023-04-02 17:31] VITALS: BP 140/60; PULSE 75; TEMP 98.4
--- NOTE | 2023-04-02 20:24 | NUR ---
Patient resting in bed at this time and is ready to wear his CPAP, assessed around this time, denies pain or discomfort, changed the dressing to his right butt cheek with non-adherent pads and tegaderm, denies SOA, glucerna given for snacks, denies further needs, plan of care discussed for this shift to include meds/pain control/ calling for questions or concerns.
[2023-04-03 06:03] VITALS: BP 138/68; PULSE 72; TEMP 97.8
--- NOTE | 2023-04-03 06:20 | NUR ---
Patient slept well overnight, denies need at this time.
[2023-04-03 06:50] VITALS: BP_SYST 138
--- NOTE | 2023-04-03 06:51 | NUR ---
Shift report received from night RN. No events reported overnight. Pt sleeping supine in bed w/ even & unlabored. Call light in reach.
--- NOTE | 2023-04-03 10:14 | NUR ---
Pt sitting up in bed watching tv. Denies pain or discomfort. Denies other needs. Call light in reach. Bed alarm is on.
--- NOTE | 2023-04-03 13:08 | NUR ---
Pt sitting up on EOB to eat lunch independently. Pain/discomfort denied. Call light is in his reach. Pt denies other needs.
[2023-04-03 17:56] VITALS: BP 124/46; PULSE 79; TEMP 99.6
[2023-04-03 18:24] VITALS: TEMP 98.4
[2023-04-03 20:00] VITALS: BP_SYST 124
--- NOTE | 2023-04-03 20:00 | NUR ---
PATIENT IS A&O. VSS. DENIES COMPLAINTS AND IS RESTING UP IN BED WITH C-PAP ON. PATIENT WANTING TO GO TO BED EARY. HS MEDS GIVEN, SEE MAR. HEAD TO TOE ASSESSMENT COMPLETE. NO OTHER NEEDS. CALL LIGHT IN REACH. LIGHTS TURNED DOWN.
[2023-04-04 05:37] VITALS: BP 143/61; PULSE 71; TEMP 97.6
--- NOTE | 2023-04-04 08:30 | NUR ---
PT RESTING IN BED WITH PAIN 4/10 IN RIGHT KNEE. PT UP TO BATHROOM USING SLIDE BOARD AND SIT TO STAND LIFT. SKIN TEAR ON BUTTOCK, AQUACELL APPLIED. EDUCATED PT ON REPOSITIONING AND USING LIFT RATHER THAN SLIDE BOARD. NO NEEDS AT THIS TIME. WILL CONTINUE TO MONITOR.
--- NOTE | 2023-04-04 15:52 | NUR ---
Physics Department Chair met with patient to check in. Patient had questions about local SNF facilities so SW provided Medicare.gov list of SNFs in a 25 mile radius. Oziel had no further questions or concerns at this time.
[2023-04-04 17:56] VITALS: BP 133/55; PULSE 78; TEMP 98.3
[2023-04-04 18:49] VITALS: BP_SYST 151
[2023-04-04 19:25] VITALS: BP 151/73
--- NOTE | 2023-04-04 20:41 | NUR ---
LATE ENTRY BSSR RECEIVED FROM RENÉ ROJAS PT APPEARS TO BE SLEEPING AT THIS TIME. PERSONAL ITMES WITHIN REACH
--- NOTE | 2023-04-04 23:16 | NUR ---
AT THIS TIME PT APPEARS TO BE SLEEPING COMFORTABLY IN BED. PT HAS CPAP ON. PT DENIED ANY COMPLAINTS OF PAIN DURING ASSESSMENT. PERSONAL ITEMS AND CALL LIGHT WITHIN REACH.
--- NOTE | 2023-04-05 05:10 | NUR ---
REPORT RECEIVED FROM BOB VALLADARES. PT SLEPT SOUNDLY THROUGHOUT THE REMAINER OF THE NIGHT. PT DENIED PAIN OR DISCOMFORT. PT EXPRESSED NO ADDITIONAL NEEDS AT THIS TIME. CALL LIGHT WITHIN REACH.
[2023-04-05 05:13] VITALS: BP 135/72; PULSE 69; TEMP 97.8
--- NOTE | 2023-04-05 08:45 | NUR ---
PT RESTING IN BED WITH NO PAIN AT THIS TIME. DRESSINGS TO L BKA DRY ON OUTSIDE BUT SOILED MEOPLEX. PLANS TO DICUSS DRESSING CHX WITH DR KAY. NO NEEDS AT THIS TIME. WILL CONTINUE TO MONITOR.
--- NOTE | 2023-04-05 12:13 | NUR ---
DRESSING CHANGE TO LEFT BKA. EDGES WELL APROXIMATED, DRAINAGE SANGINOUS. 4X4, ABD, SOFT ROLL, AND CLARE WRAP APPLIED.
[2023-04-05 17:28] VITALS: BP 132/59; PULSE 74; TEMP 97.8
--- NOTE | 2023-04-05 19:00 | NUR ---
RECEIVED CHANGE OF SHIFT REPORT FROM DAY SHIFT RN. PATIENT RESTING IN BED, CALL LIGHT IN REACH
--- NOTE | 2023-04-05 19:39 | NUR ---
PATIENT STATES HE WOULD LIKE A REFERRAL FOR A NEW SLEEP STUDY, QUALIFYING FOR HOME O2 @ NOC W/ CPAP WOULD GUILLERMO PATIENT
[2023-04-06 05:24] VITALS: BP 140/65; PULSE 73; TEMP 97.5
--- NOTE | 2023-04-06 07:12 | NUR ---
CHANGE OF SHIFT REPORT GIVEN TO DAY SHIFT RNs, MELVA.
[2023-04-06 07:17] VITALS: BP_SYST 140
--- NOTE | 2023-04-06 07:18 | NUR ---
Shift report received from night RN. No events reported overnight. Pt sleeping supine in bed. Call light in reach.
--- NOTE | 2023-04-06 09:04 | NUR ---
Pt sitting up in his wheelchair to work w/ PT. Pt off the unit w/ PT.
--- NOTE | 2023-04-06 10:28 | NUR ---
Pt sitting up in his wheelchair watching tv. He denies pain or discomfort. Lt. BKA kina wrap is CDI. Pt denies any needs at this time. Call light in his reach. Chair alarm is on. Bariatric bed in room had trouble w/ inflation/deflation. New bariatric bed placed in his room.
--- NOTE | 2023-04-06 11:04 | NUR ---
OT noted bleeding that soaked through kina wrap. Pt's Lt stump resting against foot pedal. Dressing reinforced. New kina wrap applied. Dr. Mcclain at [facility] notified. No new orders. Will continue to monitor. Pt is off the unit w/ PT/OT.
--- NOTE | 2023-04-06 11:57 | NUR ---
Pt sitting up in his wheelchair for lunch. Lt. BKA stump resting on footrest. Shane wrap is CDI. Pt denies pain/discomfort. Denies other needs. Call light in reach. Chair alarm is on.
--- NOTE | 2023-04-06 14:57 | NUR ---
Pt resting supine in bed after showering w/ OT assistance. Lt. BKA kina wrap remains CDI. Pt denies pain or discomfort. Denies other needs. Call light in reach. Bed alarm is on.
--- NOTE | 2023-04-06 16:06 | NUR ---
mixed crop and livestock farm worker met with IPR team to discuss patient's status. Patient has improved but may need longterm care until he is able to properly care for himself at home. mixed crop and livestock farm worker met with patient to discuss the IPR team meeting information and discharge planning. Patient provided a copy of the notes from the IPR team meeting. mixed crop and livestock farm worker provided list from Medicare.gov regarding rat exterminator care facilities near [place], [place]. Patient was in agreement he would benefit from rat exterminator care until he is able to stand and be more mobile in his home. Patient chose for the social contact worker to send referrals to [facility] ([facility] in [place], [facility]. Patient signed the patient preference form. mixed crop and livestock farm worker made a copy, placed original in patient's chart and provided a copy to the patient. mixed crop and livestock farm worker faxed referral to [facility] ([facility]), [facility] and [facility]. Discharge Plan: Assisted Care
[2023-04-06 17:20] VITALS: BP 121/66; PULSE 80; TEMP 97.5
[2023-04-06 18:00] VITALS: BP_SYST 121
--- NOTE | 2023-04-07 00:29 | NUR ---
UPON SHIFT ASSESSMENT, GALO WAS PLEASANT AND IN BED. HIS BANDAGES ON RT STUMP APPEARED CLEAN, DRY AND INTACT. HIS LT THOMAS WAS DRY AND CRACKING WITH PURPLE COLORATION WHICH IS PREEXISTING AND BASELINE COMPLICATION OF HIS DIABETES. HE DENIED BOTH PAIN AND SOA AND REQUESTED RT TO HELP APPLY HIS CPAP. URINAL AND CALL LIGHT WITHIN REACH.
[2023-04-07 05:29] VITALS: BP 125/58; PULSE 73; TEMP 97.8
--- NOTE | 2023-04-07 05:44 | NUR ---
GALO SLEEP PEACEFULLY, USED HIS URINAL DURING THE NIGHT AND VOICED NO COMPLAINTS DURING THIS SHIFT. CALL LIGHT WITHIN REACH, VSS WNL.
[2023-04-07 07:23] VITALS: BP_SYST 125
--- NOTE | 2023-04-07 07:24 | NUR ---
Shift report received from night RN. No events reported overnight. Lt. stump kina is CDI. Pt denies pain/discomfort. Reports sleeping well overnight. Call light in reach. Bed alarm is on.
--- NOTE | 2023-04-07 11:06 | NUR ---
Pt is off the unit for Group Therapy.
--- NOTE | 2023-04-07 14:16 | NUR ---
tube worker was contacted by [facility], whom expressed they would have to decline due to not having a male bed available. tube worker was contacted by [facility] that they did not have a bariatic bed available. tube worker contacted [facility] regarding LTC placement. [facility] expressed they did not have any usp beds available. Pt, [place], contacted social service worker regarding placement for patient. tube worker notified PT all three referrals declined due to availability. tube worker, Noreen Garner, sent multiple referrals for patient. See her note. tube worker met with patient to discuss discharge planning. Patient understood his first three preferred options declined due to availability. tube worker notified patient, they were sending additional referrals to terminal manager care facilities around the area. Patient expressed if they accept his other choices would be [facility], [facility] and [facility] but understood social service worker sent to other facilities in case they were unable to accept. Discharge Plan: LTC
--- NOTE | 2023-04-07 14:17 | NUR ---
Pt supervised as he performed a slide board transfer from wheelchair to bed. Pt lying supine in bed. Lt. BKA stump elevated on pillows x 2. Pt denies pain/discomfort. Denies other needs. Mother at the bedside. Call light in reach. Bed alarm is on.
--- NOTE | 2023-04-07 15:44 | NUR ---
Telephone Information Clerk faxed referrals for LTC to [facility], [facility], [facility], [facility], [facility], [facility], [facility], [facility], and [facility]. SW contacted [facility], [facility], and D[facility] and left messages. PIOTR also contacted [facility] who advised they are looking referral over.
--- NOTE | 2023-04-07 15:48 | NUR ---
[facility] does not have a male LTC bed available.
--- NOTE | 2023-04-07 16:18 | NUR ---
Pt resting supine in bed watching tv. Blood sugar 64 mg/dL. Pt is not symptomatic of hypoglycemia. Snack & Ensure given. Will continue to monitor. Hospitalist aware.
[2023-04-07 17:55] VITALS: BP 137/63; PULSE 79; TEMP 98.3
[2023-04-07 18:50] VITALS: BP_SYST 137
--- NOTE | 2023-04-07 20:30 | NUR ---
PT RESTING IN BED. A&O. NO DISTRESS. SEE COMPLETED ASSESSMENT. ACCUCHECK 96 LOW ACCUCHECK 1700. NOTIFIED DEVIN VALERO. NEW ORDER TO HOLD GLUCOTROL AND GLUCOPHAGE TONIGHT. PT HAS HAD SMALL CVA IN 2019 LEAVING RESIDUAL TINGLING TO RT ARM AND VERTIGO.. SEE SKIN ASSESSMENT. DENIES PAIN AT THIS TIME. CALL LIGHT IN REACH.
--- NOTE | 2023-04-08 00:58 | NUR ---
NS AT 75CC/HR TO LT F/A INFUSING. REVIEWED FALL PREVENTION. USE CALL LIGHT FOR ASSIST. BED ALARM SET. PT VERBALIZED UNDERSTANDING.
[2023-04-08 05:28] VITALS: BP 145/74; PULSE 76; TEMP 97.6
[2023-04-08 07:00] VITALS: BP_SYST 145
--- NOTE | 2023-04-08 07:19 | NUR ---
Report received from the night nurse, BOB Grey.
--- NOTE | 2023-04-08 08:28 | NUR ---
Patient sitting up at the edge of the bed almost done eating breakfast. Patient denies of shortness of breath, and pain. Shane wrap dressing on left stump dry and intact and no draiange noted at site. Patient has nickel size of skin tear at right buttock, dressing changed and applied mepilex at the affected area. Pedal pulse present at right foot with the use of doppler. Patient has no needs or concern at this time.
--- NOTE | 2023-04-08 13:47 | NUR ---
[facility] declined referral.
--- NOTE | 2023-04-08 16:44 | NUR ---
paste worker was notified [facility] may be able to accept patient but requested 3 month bank statements to submit to Medicaid. paste worker met with patient whom was hesitant to provide this information and requested a referral be made to [facility]. paste worker met with Cami, IPR Director, and patient whom explained the [facility] is another IPR facility, so they would be unable to accept. Patient would like to speak with [facility] about the cost and what his insurance would cover. paste worker contacted [facility] and they will have a public relations representative meet with the patient either Tuesday afternoon or next Tuesday. Discharge Plan: LTC
[2023-04-08 17:01] VITALS: BP 140/72; PULSE 78; TEMP 97.7
[2023-04-08 18:30] VITALS: BP_SYST 140
--- NOTE | 2023-04-08 21:00 | NUR ---
PT RESTING IN BARIATRIC SPEACILATY BED. SEE SHIFT ASSESSMENT. NO PAIN. PT ABLE TO REPOSITION SELF FOR COMFORT. ENC FREQUENT TURNS TO PROMOTE SKIN INTEGRITY. ACCUCHECK 133. PT REPORTED AT 1630 PT'S MOTHER BROUGHT IN A LARGE PIECE OF CHEESE CAKE. PRIOR TO THE CHEESCAKE ACCUCHECK 83. PT DIDNOT RECIEVE THE EVENING SUPPLEMENT DRINK. PROVIDED HS SNACK. CALL LIGHT IN REACH.
[2023-04-09 05:14] VITALS: BP 130/66; PULSE 72; TEMP 97.8
[2023-04-09 07:00] VITALS: BP_SYST 130
--- NOTE | 2023-04-09 09:08 | NUR ---
PATIENT SITTING UP IN BED WATCHING TV. PATIENT IS ALERT AND ORIENTED. SHIFT ASSESSMENT COMPLETED. MEDICATIONS GIVEN PER SEP. HEART SOUNDS S1 AND S2 NOTED. LUNGS SOUND CLEAR IN UPPER LOBES BILAT. LUNGS SOUND DIMINISHED IN THE BASES. BOWEL SOUNDS AUDIBLE IN ALL QUADRANTS. RIGHT FOOT PEDAL PULSES NOTED WITH DOPPLER. LEFT BKA STUMP DRESSING IS CDI. PATIENT DENIES ANY PAIN TO EXTREMITY. RED AREA NOTED TO SACRAL AREA, IS BLANCHABLE. PAIENT DENIES ANY NEEDS OR CONCERNS AT THIS TIME.
--- NOTE | 2023-04-09 09:46 | NUR ---
PATIENT GOING DOWN TO GROUP THERAPY.
--- NOTE | 2023-04-09 10:45 | NUR ---
PATIENT BACK FROM GROUP THERAPY. TOLERATED WELL.
--- NOTE | 2023-04-09 15:45 | NUR ---
PATIENT HAD UNEVENTFUL DAY. RESTING IN BED WATCHING TV. NO CHANGES AT THIS TIME. CALL LIGHT WITHIN REACH.
[2023-04-09 17:52] VITALS: BP 123/62; PULSE 78; TEMP 97.7
[2023-04-09 18:44] VITALS: BP_SYST 123
--- NOTE | 2023-04-09 23:52 | NUR ---
PT SLEEPING. CPAP W/O2. NO DISTRESS.
[2023-04-10 05:46] VITALS: BP 153/70; PULSE 73; TEMP 98
[2023-04-10 07:14] VITALS: BP_SYST 153
--- NOTE | 2023-04-10 07:14 | NUR ---
BSSR RECEIVED FROM DANIEL ROJAS. PT RESTING COMFORTABLY IN BED AND APPEARS TO BE SLEEPING AT THIS TIME.
[2023-04-10 17:39] VITALS: BP 117/62; PULSE 76; TEMP 98.5
--- NOTE | 2023-04-10 17:42 | NUR ---
PT HAD AN UNEVENTFUL DAY. PT DENIES ANY COMPLAINTS OF PAIN AND IS CURRENTLY RESTING COMFORTABLY IN BED WITH HIS MOM AT BEDSIDE VISITING. PT SAT ON THE EDGE OF THE TO EAT LUNCH.
[2023-04-10 19:00] VITALS: BP_SYST 117
--- NOTE | 2023-04-10 21:00 | NUR ---
PT IN BED. IS ALERT AND ORIENTED X4. HAS LT STUMP ELEVATED ON PILLOWS, DRSG D/I. RT FOOT WITH AMPUTATED TOES PEDAL PULSE NOTED WITH DOPPLER. HS MEDS GIVEN. DENIES PAIN AT THIS TIME. USING URINAL WITHOUT PROBLEM.
--- NOTE | 2023-04-11 10:35 | NUR ---
PT LAYING IN BED. ALERT AND ORIENTEDX4. NO COMPLAINTS OF PAIN AT THIS TIME. ASSESSED AND GAVE MORNING MEDS.
--- NOTE | 2023-04-11 14:33 | NUR ---
workers compensation coordinator met with patient to check in. Patient had met with [facility] and they discussed the financial aspects of [facility]. Patient wanted to see if any other agencies that the high school social science teacher had contacted would be able to accept. workers compensation coordinator explained many did not have any beds available but she would keep patient updated as his discharge date would be approaching. Discharge Plan: [facility]
--- NOTE | 2023-04-11 15:53 | NUR ---
Decorative Cutting Machine Tender met with patient and his mother at bedside. Family meeting scheduled for Tuesday at 1030.
[2023-04-11 17:28] VITALS: BP 118/62; PULSE 79; TEMP 98
[2023-04-11 18:30] VITALS: BP_SYST 118
--- NOTE | 2023-04-11 20:00 | NUR ---
PT IN BED, IS ALERT AND ORIENTED X4. HAS DRSG TO LT STUMP D/I AND ELEVATED ON PILLOW. VOIDING PER URINAL. DENIES PAIN. DOPPLER CHECK TO RT FOOT PEDAL PULSE.
[2023-04-12 05:34] VITALS: BP 138/67; PULSE 74; TEMP 98.6
--- NOTE | 2023-04-12 06:00 | NUR ---
USED URINAL THIS SHIFT. TAKES SCHEDULED AM MED. NO CONCERNS OFFERED AT THIS TIME.
--- NOTE | 2023-04-12 08:08 | NUR ---
PER YOUTH CARE WORKER REPORT PT HAD A GOOD NIGHT AND SLEPT WELL. TRANSFERS WITH MIN ASSIST.
[2023-04-12 08:09] VITALS: BP_SYST 138
[2023-04-12 17:10] VITALS: BP 141/79; PULSE 77; TEMP 98.3
[2023-04-12 19:00] VITALS: BP_SYST 141
--- NOTE | 2023-04-12 19:47 | NUR ---
REPORT RECIEVED FROM EDD ROJAS. PT RESTING IN BED WATCHING TV WITH FAMILY AT BEDSIDE. PT DENIES PAIN. CALL LIGHT IN PLACE. ALL NEEDS MET AT THIS TIME.
--- NOTE | 2023-04-13 02:45 | NUR ---
SHIFT ASSESSMENT COMPLETE, SEE DOCUMENTATION. PT RESTING IN BED. EQUAL AND UNLABORED BREATHS NOTED. CALL LIGHT IN PLACE. ALL NEEDS MET AT THIS TIME.
[2023-04-13 05:05] VITALS: BP 141/73; PULSE 74; TEMP 97.9
[2023-04-13 06:59] VITALS: BP_SYST 141
--- NOTE | 2023-04-13 07:00 | NUR ---
Shift report received from night RN. No events reported overnight. Pt awake & watching tv while lying supine. Pt denies pain/discomfort. Denies other needs. Call light in reach.
--- NOTE | 2023-04-13 08:19 | NUR ---
Pt sitting up on EOB to eat breakfast independently. Pain/discomfort denied. Call light in reach. Bed alarm is on.
--- NOTE | 2023-04-13 12:20 | NUR ---
Pt sitting up in the wheelchair eating lunch independently. Pt denies pain/discomfort. Lt. BKA stump CDI. Other needs denied. Call light in reach. Chair alarm is on.
[2023-04-13 16:02] VITALS: BP 124/65; PULSE 75; TEMP 98.9
--- NOTE | 2023-04-13 16:09 | NUR ---
family worker met with IPR team to discuss patient's progress. PT/OT expressed patient could potentially return home with modifications. family worker met with IPR team, patient and patient's mother for family meeting. Patient expressed he is open to returning home but his mother wants to ensure he has everything he needs to return home. IPR team spoke with him about scheduling a home assessment to ensure he is able to safely move around the home with minimal assistance. Patient's mother will speak with patient's father. Patient asked foster care social worker to look into a hospital bed, bariatric commode and a bed rail if there was no hospital bed available. family worker will follow. family worker was contacted by [facility] regarding questions for the home assessment. Patient thought he would be discharged that day but foster care social worker explained he would go to the home for the IPR team to assess if there were any other medical equipment needs and if he would be safe to return. Patient understood and said Tuesday at 1 pm would work. family worker notified Cami Desai, IPR director, for time and date for home assessment. Cami expressed that date and time would work. Discharge Plan: Home
--- NOTE | 2023-04-13 17:27 | NUR ---
Pt sitting up in bed eating dinner. Pain/discomfort denied. Lt. stump BKA dressing remains CDI. Other needs denied. Call light in reach. Bed alarm is on.
[2023-04-13 19:02] VITALS: BP_SYST 124
--- NOTE | 2023-04-13 20:30 | NUR ---
RESTING IN BARIACTRIC BED. SEE SHIFT ASSESSMENT COMPLETED. SEE SKIN ASSESSMENT. DENIES PAIN. NO NEEDS AT THIS TIME. CALL LIGHT IN REACH.
[2023-04-14 05:23] VITALS: BP 128/65; PULSE 75; TEMP 97.7
[2023-04-14 06:54] VITALS: BP_SYST 128
--- NOTE | 2023-04-14 06:54 | NUR ---
Shift report received from table games shift manager RN. No events reported overnight. Pt awake & ordering breakfast. Denies pain/discomfort. Lt stump kina dressing CDI. Pt has his call light in reach. Bed alarm is on.
--- NOTE | 2023-04-14 09:14 | NUR ---
Pt is off the unit for PT.
--- NOTE | 2023-04-14 10:18 | NUR ---
Pt in [facility] & noted to have breakthrough bleeding from distal end of stump. Dressing reinforced & kina wrap applied. Dr. Mcclain's nurse notified via voicemail.
--- NOTE | 2023-04-14 12:51 | NUR ---
Pt sitting up in the wheelchair watching tv. Pain/discomfort denied. Pt ate 100% of lunch independently. Lt. stump dresssing remains CDI. Pt denies other needs. Call light in reach. Chair alarm is on.
--- NOTE | 2023-04-14 15:08 | NUR ---
material requirements worker met with Cami Desai, IPR director, whom informed the social work instructor that patient may not be able to fit his wheelchair into his house. material requirements worker and Cami, IPR director, met with patient regarding concerns about patient going into his home. Patient expressed he will fit into his bedroom door with the door off. Patient reported part of the sidewalk going into his house is not large enough for his wheelchair but his brother would be working on that next week to make it easier for him to use the sidewalk. Cami will speak with PT/OT about is home assessment is still an option or if the patient should obtain pictures of his living spaces. Patient would like a hospital bed and needs a bariatric commode. Patient does not want to go to [facility] [place] due to concerns family has expressed that stayed there for a short term stay. material requirements worker contacted [facility] to determine how to assist patient with applying for the PD waiver. material requirements worker left a message. material requirements worker contacted [facility] whom expressed they would need to submit prior authorization with orders and documentation for patient to his insurance to determine if they would cover cost for hospital bed. [facility] does not have any bariatric commodes and recommended contacting [facility] or [facility]. In case patient is unable to return home, social work instructor faxed referrals to [facility], [facility] in [place] and [facility]. Discharge Plan: Home
--- NOTE | 2023-04-14 15:28 | NUR ---
Pt resting supine in bed. Lt. stump dsg remains CDI. Pt anxious about the possibility of a repeat surgery on Tuesday. Pt denies pain/discomfort. Denies other needs. Call light in reach.
[2023-04-14 17:27] VITALS: BP 144/70; PULSE 81; TEMP 98.8
[2023-04-14 18:30] VITALS: BP_SYST 144
--- NOTE | 2023-04-14 20:00 | NUR ---
PT RESTING IN SPECIALTY BARIATRIC BED. ACCUCHECK 103. GAVE HS SNACK AND GLUCERNA. DRSG TO LT STUMP CDI- NO FURTHER BLEEDING. DENIES PAIN. CALL LIGHT IN REACH.
[2023-04-15 05:19] VITALS: BP 139/78; PULSE 72; TEMP 98
--- NOTE | 2023-04-15 07:52 | NUR ---
PER AMERICAN HISTORY TEACHER REPORT PT HAD BLEEDING THROUGH STUMP YESTERDAY. PT IS SUPPOSED TO BE SEEN IN THE NESR FUTURE FOR EVAL AND POSSIBLE SURGERY ON STUMP.
[2023-04-15 07:53] VITALS: BP_SYST 139
--- NOTE | 2023-04-15 10:23 | NUR ---
PT ALERT AND ORIENTED X4 UP AT BEDSIDE EATING BREAKFAST. VITAL SIGNS STABLE. HEAD TO TOE ASSESSMENT COMPLETE. MEDICATD PER EMAR. FALL PRECAUTIONS IN PLACE.
--- NOTE | 2023-04-15 16:26 | NUR ---
cattle care worker and social work student briefly met with patient to update him that home medical does not cover his bariatric commode and his insurance would not cover bariatric hospital bed. Patient will look at bed rail. Patient has surgery on Tuesday at 2 pm and will be moved to another unit. Discharge Plan: Home
[2023-04-15 18:48] VITALS: BP 133/63; PULSE 80; TEMP 98.5
--- NOTE | 2023-04-15 19:31 | NUR ---
RECEIVED CHANGE OF SHIFT REPORT FROM DAY SHIFT RN.
[2023-04-16 04:53] VITALS: BP 135/70; PULSE 73; TEMP 97.5
[2023-04-16 07:00] VITALS: BP_SYST 135
--- NOTE | 2023-04-16 07:09 | NUR ---
CHANGE OF SHIFT REPORT GIVEN TO DAY SHIFT RNNAKIA.
--- NOTE | 2023-04-16 10:48 | NUR ---
PT SITTING UP IN BED, ALERT AND ORIENTEDX4. NO COMPLAINTS OF PAIN AT THIS TIME. PT USED SLIDE BOARD TO BEDSIDE COMODE AND HAD A LARGE BOWEL MOVEMENT. CHANGED DRESSING ON COCCYX.
[2023-04-16 18:26] VITALS: BP 114/59; PULSE 78; TEMP 98.2
[2023-04-17 06:09] VITALS: BP 143/67; BP 160/84; PULSE 70; TEMP 97.8
[2023-04-17 07:00] VITALS: BP_SYST 143
--- NOTE | 2023-04-17 09:47 | NUR ---
PT LAYING IN BED, ALERT AND ORIENTEDX4. NO COMPLAINTS OF PAIN AT THIS TIME. ASSESSED AND GAVE MORNING MEDS. CALL LIGHT WITHIN REACH.
--- NOTE | 2023-04-17 11:48 | NUR ---
Cell Tester rounds: Patient will have another surgery tomorrow at 2:00 p.m. prayed for the surgery and healing afterwards.
[2023-04-17 17:57] VITALS: BP 114/70; PULSE 85; TEMP 98.3
[2023-04-18 05:25] VITALS: BP 142/72; PULSE 73; TEMP 97.9
[2023-04-18 06:26] LABS: BASO % 0.7 % (0.0-2.0); EOS # 0.4 K/mm3 (0.0-0.7); EOS % 6.7 % (0.0-4.0); GRAN # 3.2 K/mm3 (1.4-6.5); GRAN % 52.7 % (42.2-75.2); LYMPH # 1.7 K/mm3 (1.2-3.4); LYMPH % 28.4 % (20.0-51.0); MEAN CELL VOLUME 91 fl (80.0-100.0); MEAN CORPUSCULAR HGB CONC 28 g/dl (33.0-37.0); MEAN PLATELET VOLUME 11.6 fl (7.4-10.4); MONO # 0.7 K/mm3 (0.1-0.6); MONO % 11.3 % (1.7-9.3); PLATELET COUNT 256 K/mm3 (130-400); RED BLOOD COUNT 3.61 M/mm3 (4.20-5.60); REDCELL DISTRIBUTION WIDTH-CV 16.4 % (11.5-14.5)
[2023-04-18 06:32] LABS: HEMOGLOBIN 9.2 g/dl (13.5-18.0); MEAN CORPUSCULAR HEMOGLOBIN 25 pg (27-31)
[2023-04-18 06:46] LABS: CREATININE, serum 1.21 mg/dL (0.72-1.25); MAGNESIUM 2.1 mg/dL (1.6-2.6); POTASSIUM 4.7 mmol/L (3.5-4.5)
[2023-04-18 06:50] VITALS: BP_SYST 142
[2023-04-18 07:13] VITALS: BP 108/64; PULSE 69; TEMP 98
[2023-04-18] MEDS ORDERED: PACERONE400 MG PO (07:39)
--- NOTE | 2023-04-18 10:03 | NUR ---
Has lack of transportation kept you from medical appts, meetings, work, or from getting things needed for daily living? NO How often do you feel lonely or isolated from those around you? NEVER Over the past 5 days, how much of the time has pain made it hard for you to sleep? NO PAIN Over the past 5 days, how often have you limited your participation in therapy due to pain? NO PAIN Over the past 5 days, how often have you limited your day-to-day activities because of pain? NO PAIN
[2023-04-21] MEDS ORDERED: ROXICODONE 55 MG/TAB PO (14:20)
[2023-04-21] MEDS ORDERED: CORDARONE200 MG/TAB PO (14:25)
== END 2023-04-18 10:50 | disposition still patient (30) | DRG 559 ==
PROVIDERS: Hospitalist; Internal Medicine; ADMIT Physical Medicine & Rehabilitation Sports Medicine
DX: Z47.81 Encounter for orthopedic aftercare following surgical amputation (principal); A40.1 Sepsis due to streptococcus, group B; I69.351 Hemiplegia and hemiparesis following cerebral infarction affecting right dominant side; I47.20 Ventricular tachycardia, unspecified; E66.2 Morbid (severe) obesity with alveolar hypoventilation; Z68.41 Body mass index [BMI] 40.0-44.9, adult; Z89.512 Acquired absence of left leg below knee; Z74.09 Other reduced mobility; R26.89 Other abnormalities of gait and mobility; I87.2 Venous insufficiency (chronic) (peripheral); I77.819 Aortic ectasia, unspecified site; E78.5 Hyperlipidemia, unspecified; D64.89 Other specified anemias; N18.30 Chronic kidney disease, stage 3 unspecified; I12.9 Hypertensive chronic kidney disease with stage 1 through stage 4 chronic kidney disease, or unspecified chronic kidney disease; E11.42 Type 2 diabetes mellitus with diabetic polyneuropathy; Z20.828 Contact with and (suspected) exposure to other viral communicable diseases; Z79.899 Other long term (current) drug therapy; Z79.4 Long term (current) use of insulin; Z79.82 Long term (current) use of aspirin; Z79.84 Long term (current) use of oral hypoglycemic drugs; Z86.718 Personal history of other venous thrombosis and embolism; Z88.1 Allergy status to other antibiotic agents; Z91.198 Patient's noncompliance with other medical treatment and regimen for other reason
CPT/HCPCS: A9270; J1815

== ENCOUNTER 2023-06-09 05:20 | Day surgery (SDC) | payer MEDICAID ==
[~2023-06-09] VITALS: Ht 203.2 cm; Wt 168.2 kg
[~2023-06-09 05:20] MED LIST changes: +CORDARONE200 MG/TAB PO; +PROTONIX 40MG T40 MG PO; +ROXICODONE 55 MG/TAB PO
[2023-06-09] MEDS ORDERED: CADUET 10 MG-101 TAB PO (06:19)
[2023-06-09] MEDS ORDERED: LASIX 40MG TABL40 MG PO (06:19)
[2023-06-09 06:40] VITALS: BP 124/62; PULSE 89; TEMP 98.3
[2023-06-09 08:52] VITALS: BP 118/55; PULSE 82; TEMP 97.1
[2023-06-09 09:07] VITALS: BP 125/59; PULSE 82
[2023-06-09 09:22] VITALS: BP 127/49; PULSE 84
[2023-06-09 09:37] VITALS: BP 121/62; PULSE 84
--- NOTE | 2023-06-09 10:00 | NUR ---
0852 RETURNS TO ROOM 1 PER CART. AWAKE, ALERT. RESP UNLABORED. HOB ELEVATED 60 DEGREES. VITAL SIGNS OBTAINED. DENIES DISCOMFORT. CLARE WRAPPED DRESSING LEFT LOWER EXTREMITY/STUMP CLEAN DRY AND INTACT. WOUND VAC IN PLACE. DENIES PAIN. CALL LIGHT AT SIDE 0905 TOLERATES PO SALTINES AND WATER WITHOUT NAUSEA 0920 DISCHARGE INSTRUCTIONS REVIEWED. PATIENT VERBALIZES UNDERSTANDING. COPY PROVIDED IN DISCHARGE FOLDER, IN ADDITION TO PRINTED INSTRUCTIONS PROVIDED BY DR MATHIS 0940 IV SITE DC'D. PATIENT DRESSES WHILE ON CART. REQUIRES MINIMAL ASSIT. 0950 TRANSFERS FROM CART TO WHEEELCHAIR DIRECTLY AT BEDSIDE. PATIENT SLIDES FROM CART TO WHEELCHAIR. CONTINUES TO DENY PAIN. DRESSING UNCHANGED FROM INITIAL ASSESSMENT
[2023-06-09 12:18] VITALS: BP 120/65; PULSE 84; TEMP 97.6
== END 2023-06-09 10:00 | disposition home or self-care (01) ==
LOC: SDCO 05:20
DX: T87.81 Dehiscence of amputation stump (principal); E11.9 Type 2 diabetes mellitus without complications; Z79.84 Long term (current) use of oral hypoglycemic drugs; Z89.512 Acquired absence of left leg below knee
CPT/HCPCS: J0330; J0690; J2405; J2704; J3010; J7120